=== PATIENT | male | born 1990 | race Caucasian/White ===

== ENCOUNTER 2020-06-28 18:50 | Inpatient (IN) | payer MEDICAID ==
[~2020-06-28] VITALS: Ht 170.2 cm; Wt 114.3 kg
[2020-06-28] MEDS ORDERED: CITA10TA99 PO (19:40)
[2020-06-28 20:43] LABS: BASOPHILS % (AUTO) 0.8 % (0.0-2.0); EOSINOPHILS % (AUTO) 2.9 % (1.0-6.0); HEMATOCRIT 43.9 % (41-53); HEMOGLOBIN 14.3 g/dL (13.5-17.5); LYMPHOCYTES # (AUTO) 2.3 K/uL (1.0-4.8); MEAN CORPUSCULAR HEMOGLOBIN 26.5 pg (26.0-34.0); MEAN CORPUSCULAR HGB CONC 32.6 G/dL (31.0-37.0); MEAN CORPUSCULAR VOLUME 81 fL (80-100); MONOCYTES # (AUTO) 0.6 K/uL (0.1-1.0); NEUTROPHILS # (AUTO) 5.2 K/uL (1.8-7.7); NEUTROPHILS % (AUTO) 62.3 % (40.0-70.0); PLATELET COUNT (AUTO) 280 K/uL (150-450); RED CELL DISTRIBUTION WIDTH 14.3 % (11.5-14.5)
[2020-06-28 20:54] LABS: ANION GAP 13 mmol/L (8-16); CARBON DIOXIDE 24 mmol/L (22-29); CHLORIDE 105 mmol/L (98-107); CREATININE 0.78 mg/dL (0.60-1.30); GLOMERULAR FILTR. RATE CALC > 60 mL/min (>60); GLUCOSE,RANDOM 96 mg/dL (70-110); POTASSIUM 3.8 mmol/L (3.5-5.1); SODIUM SERUM 142 mmol/L (136-145); UREA NITROGEN, BLOOD 15 mg/dL (7-18)
[2020-06-28 21:00] LABS: ALANINE AMINOTRANSFERASE 25 U/L (12-78); ALBUMIN 3.7 g/dL (3.4-5.0); ALKALINE PHOSPHATASE 54 U/L (46-116); ASPARTATE AMINOTRANSFERASE 16 U/L (15-37); BILIRUBIN,TOTAL 0.2 mg/dL (0.1-1.0); TOTAL PROTEIN, SERUM 7.6 g/dL (6.4-8.2)
[2020-06-28 22:29] LABS: COVID AG,FIA SOURCE NASOPHARYNGEAL
[2020-06-28] MEDS ORDERED: HALOPERIDOL 5 MG TABLET PO PRN (22:30)
[2020-06-29 00:45] VITALS: BP 126/83
[2020-06-29 06:43] LABS: CHOL/HDL RATIO 3.2 (4.2-7.3)
[2020-06-29] MEDS ORDERED: DOCUSATE SODIUM 100 MG CAPSULE PO PRN (08:15)
[2020-06-29] MEDS ORDERED: IBUPROFEN 400 MG TABLET PO PRN (08:15)
[2020-06-29] MEDS ORDERED: ONDANSETRON HCL 4 MG TABLET PO PRN (08:15)
[2020-06-29] MEDS ORDERED: MAG HYDROX/AL HYDROX/SIMETH ES 30 ML SUSPENSION UDCUP PO PRN (08:15)
[2020-06-29] MEDS ORDERED: NICOTINE 14 MG/24 HOUR PATCH TD PRN (08:15)
[2020-06-29] MEDS ORDERED: ACETAMINOPHEN 325 MG TABLET PO PRN (08:15)
[2020-06-29] MEDS ORDERED: ALBUTEROL SULFATE HFA 90 MCG/PUFF 8 GM INHALER IH PRN (08:15)
[2020-06-29] MEDS ORDERED: GuaiFENesin/D-METHORPHAN [SUGAR-FREE] 200-20MG/10 ML SYRUP UDCUP PO PRN (08:15)
[2020-06-29] MEDS ORDERED: PETROLATUM,WHITE 28 GM JELLY TP PRN (08:15)
[2020-06-29] MEDS ORDERED: MAGNESIUM HYDROXIDE SUSPENSION 30 ML UDCUP PO PRN (08:15)
[2020-06-29] MEDS ORDERED: LOPERAMIDE HCL 2 MG CAPSULE PO PRN (08:15)
[2020-06-29] MEDS ORDERED: CloNIDine HCL 0.1 MG TABLET PO PRN (08:15)
[2020-06-29 08:47] VITALS: BP 143/95
[2020-06-29] MEDS: CITALOPRAM HYDROBROMIDE 20 MG TABLET PO SCH (11:55)
[2020-06-29] MEDS: LORazepam 2 MG TABLET PO PRN (11:57)
[2020-06-29 16:00] VITALS: BP 111/86
[2020-06-30 08:19] VITALS: BP 115/56
[2020-06-30] MEDS: CITALOPRAM HYDROBROMIDE 20 MG TABLET PO SCH (09:35)
[2020-06-30] MEDS: LORazepam 2 MG TABLET PO PRN (09:36)
[2020-06-30 16:00] VITALS: BP 109/76
[2020-06-30] MEDS: ZOLPIDEM TARTRATE 10 MG TABLET PO PRN (22:36)
[2020-07-01 08:46] VITALS: BP 105/62
[2020-07-01] MEDS: CITALOPRAM HYDROBROMIDE 20 MG TABLET PO SCH (09:30)
[2020-07-01 16:00] VITALS: BP 105/70
[2020-07-01] MEDS: ZOLPIDEM TARTRATE 10 MG TABLET PO PRN (21:18)
[2020-07-02 08:05] VITALS: BP 122/79
[2020-07-02 08:35] VITALS: BP 122/79
[2020-07-02] MEDS ORDERED: ARIPiprazole 10 MG TABLET PO SCH (09:00)
[2020-07-02] MEDS: CITALOPRAM HYDROBROMIDE 20 MG TABLET PO SCH (09:24)
[2020-07-02] MEDS: FUROSEMIDE 40 MG TABLET PO SCH (10:36)
[2020-07-02 16:00] VITALS: BP 130/80
[2020-07-02 16:29] VITALS: BP 130/80
[2020-07-03 08:36] VITALS: BP 129/85
[2020-07-03] MEDS: CITALOPRAM HYDROBROMIDE 20 MG TABLET PO SCH (10:00)
[2020-07-03] MEDS: FUROSEMIDE 40 MG TABLET PO SCH (10:00)
[2020-07-03] MEDS: ARIPiprazole 15 MG TABLET PO SCH (10:02)
[2020-07-03 16:07] VITALS: BP 126/92
[2020-07-04] MEDS: ARIPiprazole 15 MG TABLET PO SCH (08:15)
[2020-07-04] MEDS: FUROSEMIDE 40 MG TABLET PO SCH (08:15)
[2020-07-04] MEDS: CITALOPRAM HYDROBROMIDE 20 MG TABLET PO SCH (08:16)
[2020-07-04 09:53] VITALS: BP 111/76
[2020-07-04] MEDS: LORazepam 2 MG TABLET PO PRN (11:10)
[2020-07-04] MEDS ORDERED: FURO40 PO (12:42)
[2020-07-04] MEDS ORDERED: ARIP15TA2 PO (12:42)
== END 2020-07-04 15:50 | disposition home or self-care (01) | DRG 750 ==
LOC: EMS 18:50 → 3EI 22:16
PROVIDERS: ADMIT Psychiatry & Neurology Child & Adolescent Psychiatry; ATTEND Psychiatry & Neurology Child & Adolescent Psychiatry
DX: F20.0 Paranoid schizophrenia (principal); F10.10 Alcohol abuse, uncomplicated; F12.90 Cannabis use, unspecified, uncomplicated; Z20.822 Contact with and (suspected) exposure to COVID-19; I10 Essential (primary) hypertension; Y90.9 Presence of alcohol in blood, level not specified
CPT/HCPCS: 87426; 99285; G0480